=== PATIENT | male | born 1960 | race African-American/Black ===

== ENCOUNTER 2016-12-18 02:07 | Emergency (ER) | payer MEDICAID ==
[~2016-12-18 02:07] MED LIST: ACETAMINOPHEN PO; CATAPRES0.1 MG PO; CORDARONE200 M1 PO; DOXYCYCLINE PO; FOLIC ACID1 MG PO; K-DUR20 ME2 PO; LIBRIUM25 MG PO; LIPITOR20 MG PO; LOPRESSOR PO; LORTAB 7.51 TAB PO; METOPROLOL TAR25 MG PO; MULTI VITAMIN1 EACH PO; NO MEDICATIONS; NORVASC PO; NORVASC10 MG PO; THERAPEUTIC FOR1 TA1 PO; THIAMINE HCL100 M1 PO; THIAMINE HCL100 M2 PO; UNABLE TO OBTAIN; VASOTEC10 MG PO
== END 2016-12-18 06:24 | disposition home or self-care (01) ==
LOC: CED 02:07
DX: F10.129 Alcohol abuse with intoxication, unspecified (principal); E11.9 Type 2 diabetes mellitus without complications; I10 Essential (primary) hypertension; F17.210 Nicotine dependence, cigarettes, uncomplicated
CPT/HCPCS: 99283

== ENCOUNTER 2017-01-25 07:35 | Emergency (ER) | payer MEDICAID, OTHER ==
[2017-01-25 08:04] LABS: URINE SOURCE CLEAN CATCH
[2017-01-25 08:10] LABS: URINE APPEARANCE CLEAR; URINE BILIRUBIN NEG (NEG); URINE BLOOD TRACE (NEG); URINE COLOR YELLOW; URINE GLUCOSE NEG (NEG); URINE KETONE NEG (NEG); URINE LEUKOCYTE ESTERASE NEG (NEG); URINE NITRATE NEG (NEG); URINE PROTEIN 2+ (NEG); URINE SPECIFIC GRAVITY 1.009 (1.003-1.035); URINE UROBILINOGEN 0.2 MG/DL (NEG)
[2017-01-25 08:13] LABS: URBCS1 AUWI 0-2 /[HPF] (0-2); URINE BACTERIA AUWI NEG (NEGATIVE); URINE SQUAMOUS EPITHELIAL CELL NONE SEEN /[HPF]; UWBCS1 AUWI 0-2 (0-5)
[2017-01-25 08:17] LABS: CULTURE INDICATED? NO
[2017-01-25 08:22] LABS: AMPHETAMINE NEG (NEG); BARBITURATES NEG (NEG); BENZODIAZEPINES NEG (NEG); COCAINE NEG (NEG); MARIJUANA NEG (NEG); OPIATES NEG (NEG); TRICYCLIC ANTIDEPRESSANTS NEG (NEG); U METHADONE NEG (NEG)
[2017-01-25 08:30] LABS: ALBUMIN SERUM 3.5 g/dL (3.5-5.0); BILIRUBIN,TOTAL 0.4 mg/dL (0.2-2.0); CALCIUM SERUM 8.4 mg/dL (8.4-10.2); CREATININE SERUM 0.9 mg/dL (0.6-1.4); GLOM FILT RATE Estimated 110.3 mL/min (>60); POTASSIUM 3.5 mmol/L (3.5-5.1)
[2017-01-25 08:49] LABS: BASOPHIL% 1.1 % (0-2.5); EOSINOPHIL% 0.7 % (0.0-7.0); HEMATOCRIT 32.7 % (38.0-50.0); LYMPHOCYTE# 0.8 X10e3 (1.0-3.5); LYMPHOCYTE% 29.8 % (17.0-45.0); MEAN CELL VOLUME 81.4 FL (83-96); MEAN CORPUSCULAR HEMOGLOBIN 24.9 PG (28-34); MEAN CORPUSCULAR HGB CONC 30.6 g/dL (30-36); MEAN PLATELET VOLUME 7.7 FL (6.5-11.5); MONOCYTE# 0.4 X10e3 (0-1.0); NEUTROPHIL# 1.4 X10e3 (1.5-7.1); NEUTROPHIL% 52.4 % (40-75); RED BLOOD COUNT 4.01 X10e (3.90-5.60); RED CELL DISTRIBUTION WIDTH 18.4 % (11.0-15.5); WHITE BLOOD COUNT 2.6 X10e3 (4.0-10.5)
[2017-01-25 09:18] LABS: DIFF IND YES; PLATELET COUNT 93 X10e3 (140-420)
[2017-01-25 09:35] LABS: ANISOCYTOSIS SL; HYPOCHROMIA SL; PLATELET ESTIMATE DECREASED (NORMAL)
[2017-07-17] MEDS ORDERED: HYDRALAZINE HC100 MG PO (15:56)
[2017-07-17] MEDS ORDERED: LISINOPRIL20 MG PO (15:57)
[2017-07-17] MEDS ORDERED: ONE DAILY ENER1 EACH PO (16:00)
[2017-07-17] MEDS ORDERED: ANTI-DIARRHEAL2 M1 PO (16:01)
[2017-07-17] MEDS ORDERED: NICOTINE TRANSD14 MG TOP (16:02)
[2017-07-17] MEDS ORDERED: LIBRIUM PO (16:05)
[2017-07-17] MEDS ORDERED: ASPIRIN EC81 M1 PO (16:06)
[2017-07-17] MEDS ORDERED: ALDACTONE25 MG PO (16:16)
== END 2017-01-25 17:00 | disposition home or self-care (01) ==
LOC: CED 07:35
PROVIDERS: Nurse Practitioner
DX: R74.8 Abnormal levels of other serum enzymes (principal); F10.129 Alcohol abuse with intoxication, unspecified; D64.9 Anemia, unspecified; D69.6 Thrombocytopenia, unspecified; I10 Essential (primary) hypertension; F17.210 Nicotine dependence, cigarettes, uncomplicated
CPT/HCPCS: 36415; 80053; 80307; 81003; 83690; 85025; 99283; G0480; J2060; J2405; J3490

== ENCOUNTER 2017-01-25 19:18 | Inpatient (IN) | payer MEDICAID, OTHER ==
--- NOTE | ~2017-01-25 | EKG ---
PATIENT: IZA OLIVERA UNIT #: [id number] Ventricular Rate: 170 BPM Atrial Rate: 150 BPM QRS Duration: 92 ms Q-T Interval: 298 ms QTC Calculation(Bezet): 501 ms Calculated R [place]: 59 degrees Calculated T [place]: 0 degrees Diagnosis Line: Atrial fibrillation with rapid ventricular Diagnosis Line: response with premature ventricular or aberrantly Diagnosis Line: conducted complexes Diagnosis Line: Left ventricular hypertrophy Diagnosis Line: ST and T wave abnormality, consider lateral ischemia Diagnosis Line: Abnormal ECG Diagnosis Line: When compared with ECG of 12-DEC-2016 15:04, Diagnosis Line: Significant changes have occurred Diagnosis Line: Confirmed by DENNIS JOSEPH MD ([id number]) on 01/25/2017 Diagnosis Line: 11:05:16 PM INTERPRETING MD: OPAL MUJICA
--- NOTE | ~2017-01-25 | EKG ---
PATIENT: IZA OLIVERA UNIT #: [id number] Ventricular Rate: 83 BPM Atrial Rate: 83 BPM P-R Interval: 144 ms QRS Duration: 86 ms Q-T Interval: 356 ms QTC Calculation(Bezet): 418 ms P [place]: 40 degrees Calculated R [place]: 26 degrees Calculated T [place]: 62 degrees Diagnosis Line: Normal sinus rhythm Diagnosis Line: Left atrial enlargement Diagnosis Line: Moderate voltage criteria for LVH, may be normal Diagnosis Line: variant Diagnosis Line: Borderline ECG Diagnosis Line: When compared with ECG of 28-JAN-2017 06:15, Diagnosis Line: (unconfirmed) Diagnosis Line: Normal sinus rhythm has replaced Atrial flutter Diagnosis Line: Vent. rate has decreased BY 62 BPM Diagnosis Line: Non-specific change in ST segment in Inferior Diagnosis Line: leads Diagnosis Line: ST elevation now present in Anterolateral leads Diagnosis Line: Nonspecific T wave abnormality, improved in Diagnosis Line: Anterolateral leads Diagnosis Line: Confirmed by DENNIS JOSEPH MD ([id number]) on 01/29/2017 Diagnosis Line: 4:46:23 PM INTERPRETING MD: OPAL MUJICA
--- NOTE | ~2017-01-25 | MR18 ---
[facility] Service of [facility] & [facility] RADIOLOGY TEXT RESULTS PATIENT: IZA OLIVERA LOCATION: C3A 310-01 : 60 UNIT #: [id number] AGE: [address]: Reji Armendariz MD SEX: M ORDER DR: [id number] [place] [id number] [facility]. [place], [place] [address] [id number] I MR#: [id number] #: [id number] NAME: IZA OLIVERA : 1960 SEX: M STUDY DATE/TIME: 02/01/2017 18:55 UNIT: C3A PCU ROOM: 310 STUDY DESCRIPTION: MR Brain Wo Contrast Attending Physician: Reji Armendariz M.D. Ordering Physician: Reji Armendariz M.D. MRI CENTER REPORT This report is preliminary unless electronic signature is present. EXAM Brain MRI without HISTORY Mental status changes. Patient had a seizure and hit his head yesterday after going home from the emergency room. Uncontrolled hypertension and heart rate. TECHNIQUE MRI of the brain was performed without contrast is seen. 1.5-T imaging technique. COMPARISON STUDIES Comparison studies 11/08/2013. FINDINGS One punctate focus of possibly restricted diffusion in the left frontal subcortical white matter, a few millimeters in dimension. It is too small to characterize well on the ADC map. Otherwise, no recent ischemic insult is suspected. There is generalized atrophy greater than expected for age group. This includes disproportionate volume loss in the posterior fossa and this is most commonly seen secondary to long-term alcohol or anti-seizure medication usage. There is no extra-axial fluid collection. There is a small focus of susceptibility in the left frontal subcortical white matter, probably due to remote hemorrhage and in light of history of uncontrolled hypertension. Similar lesion seen in the left thalamus, right thalamus and right posterolateral temporal lobe. There is a larger area of susceptibility at the right side splenium of the corpus callosum, also consistent with an old hemorrhagic insult. None of these is associated with mass effect and there is nothing to suggest a recent hemorrhage. There is extensive white matter disease which is nonspecific but probably due to small vessel disease. There is cortical signal STS. [facility] A Service of [facility] & [facility] RADIOLOGY TEXT RESULTS PATIENT: IZA OLIVERA LOCATION: C3A 310-01 : 60 UNIT #: [id number] AGE: [address]: Reji Armendariz MD SEX: M ORDER DR: abnormality at the posteromedial right frontal lobe which is new from 2013. It is not associated with mass effect and probably associated with volume loss. I suspect it is a small area of malacia from some interval now chronic insult. White matter disease is progressed from prior. There is also lacunar disease in the bilateral basal ganglia and thalami and generalized prominence of perivascular spaces. Signal abnormality in the harrison, patchy, nonspecific, probably due to small vessel disease, as well as chronic insults in the bilateral cerebellar hemispheres, largest on the right side inferiorly. The major intracranial flow voids are maintained. Fluid or inflammatory change left-sided mastoid air cells. Partial opacification of the ethmoid air cells. Incidental note made of a small Tornwaldt recess cyst. IMPRESSION 1. There is 1 punctate area of possibly restricted diffusion at the subcortical white matter of the posteromedial left frontal lobe. In this patient, if real, it is probably a tiny recent small vessel insult. 2. There is extensive preexisting probable sequelae of small vessel disease progressed from the study of 2013. There are also multiple areas of prior parenchymal hemorrhage, probably due to the patient's uncontrolled hypertension. No recent intracranial hemorrhage is suspected. 3. There is generalized atrophy greater than expected for age group with disproportionate volume loss in the posterior fossa. Findings most suggestive of long-term alcohol or anti-seizure medication usage and please correlate further clinically. Dictated by... Heaven Talbot M.D. THIS IS AN ELECTRONICALLY VERIFIED REPORT Heaven Talbot M.D. at 02/01/2017 11:09 PM TELMA/yony TD: 02/01/2017 22:04 JOB #: [id number] MRI CENTER REPORT Page 1 of 1 COPY
--- NOTE | ~2017-01-25 | EKG ---
PATIENT: IZA OLIVERA UNIT #: [id number] Ventricular Rate: 150 BPM Atrial Rate: 136 BPM QRS Duration: 86 ms Q-T Interval: 304 ms QTC Calculation(Bezet): 480 ms Calculated R [place]: 54 degrees Calculated T [place]: 9 degrees Diagnosis Line: Atrial fibrillation with rapid ventricular Diagnosis Line: response Diagnosis Line: Left ventricular hypertrophy Diagnosis Line: Nonspecific T wave abnormality Diagnosis Line: Abnormal ECG Diagnosis Line: When compared with ECG of 25-JAN-2017 20:06, Diagnosis Line: ST no longer depressed in Lateral leads Diagnosis Line: Confirmed by DENNIS JOSEPH MD ([id number]) on 01/27/2017 Diagnosis Line: 6:59:59 PM INTERPRETING MD: OPAL MUJICA
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
--- NOTE | ~2017-01-25 | OR ---
Unit #: [id number] #: [id number] Patient: IZA OLIVERA [id number] [address] [address] [id number] I MR#: [id number] NAME: IZA OLIVERA ROOM: [facility] Date of Procedure: 01/29/2017 Admission Date: 01/25/2017 Surgeon: Gavin Cortés M.D. : 1960 Attending Physician: Reji Armendariz M.D. OPERATIVE REPORT PROCEDURE PERFORMED Direct current shock cardioversion. DESCRIPTION OF PROCEDURE The patient was given 4 mg of intravenous Versed and 100 mcg of intravenous fentanyl over 10 minute duration and after adequate sedation was induced, using 250 joules per second of biphasic current, DC shock cardioversion was performed. Rhythm converted to normal sinus, no tachyarrhythmia was induced. Blood pressure and oxygen saturation remained normal. IMPRESSION Successful direct current shock cardioversion, atrial flutter-fibrillation converted to normal sinus following 250 joules per second of biphasic current. Dictated by... Lucian Tripp/kelly TD: 01/30/2017 00:12 JOB #: [id number] OPERATIVE REPORT Page 1 of 1 X Gavin Cortés MD X PROCEDURE OPERATIVE NOTE
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
--- NOTE | ~2017-01-25 | FU ---
[facility] Nutrition Therapy DATE: 01/31/17 Patient: IZA OLIVERA Physician: CHAYITO Address: [address] [place] [address] Room/Bed: [address], Zip: [place] [address] Admit Date: 01/25/17 Date of : 60 Height: 5 8 Weight: 213 97 NUTRITION MONITORING/FOLLOW-UP: Reason: FOLLOW UP Anthropometrics: Ht: 68" Adm wt: 96 kg BMI: 37 Wt 01/31: 97 kg Labs: Gluc 123 BUN 24 Alb 2.7 AST 188 ALT 110 Meds: KCl, MgSO4, lopressor, MVI with minerals, furosemide, mag-ox, protonix, zofran, thiamine I&O's: 3450/3645, last BM unknown Skin: No changes noted Edema: none noted Diet: Heart healthy Assessment: Chart reviewed, events noted. Pt has been ordered a heart healthy diet with thin liquids per RECREATIONAL RESORT MANAGER recommendations. RECREATIONAL RESORT MANAGER notes that the pt may need feeding assistance. RN reports that the pt was receiving enteral nutrition up until this AM when he pulled out his DHT. RD spoke with the pt, who was sitting in the chair. Pt just finished his breakfast, and consumed 80% of it per RD observation. Pt reports having a good appetite and denies having any recent weight loss. Pt asked RD "What would a good diet be for someone coming off alchocol?". RD discussed the importance of a heart healthy, well-balanced diet, and provided basic diet education. Pt voiced understanding; however, he did seem somewhat confused. Pt is agreeable to Ensure once daily. RD will order. First nutrition diagnosis resolved, other remains active. Dx: Stage II obese RT PMH, lifestyle, diet AEB BMI 37- ACTIVE Intervention: 1. Continue heart helathy diet 2. Ensure once daily Monitoring, Evaluation and Goals: 1. Oral intake; tolerate >50-75% meals 2. Labs; WNL: ALT, AST, gluc 3. Weight; preserve lean body mass [facility] Nutrition Therapy DATE: 01/31/17 Patient: IZA OLIVERA Physician: CHAYITO Address: [address] [place] [address] Room/Bed: [address], Zip: [place] [address] Admit Date: 04/05/17 Date of : 60 Height: 5 8 Weight: 213 97 Recommendations: 1. Continue heart healthy diet as tolerated. 2. Ensure Enlive strawberry once daily for supplemental nutrition. 3. Continue MVI with minerals + thiamine supplementation. Status: Pt is at mild-moderate nutritional risk. Respectfully, SPENCER AMBROCIO RD, LD Food and Nutritional Services [facility] [place] [facility] cc: client file
--- NOTE | ~2017-01-25 | DS ---
Unit #: [id number] #: [id number] Patient: IZA OLIVERA [id number] [address] [place], [place] [address] [id number] MR#: [id number] NAME: IZA OLIVERA ROOM: 310 Age: 56 Sex: M Admission Date: 01/25/2017 : 1960 Discharge Date: 02/02/2017 Attending Physician: Reji Armendariz M.D. Primary Care Physician: No Primary Care Physician DISCHARGE SUMMARY REASON FOR ADMISSION Alcohol withdrawal seizure, A-fib with RVR. HISTORY OF PRESENT ILLNESS/HOSPITAL COURSE The patient is a 56-year-old male well known to [facility] secondary to prior history of alcohol abuse, atrial fibrillation, hypertension. Please see H and P for complete details. In regards to his aberrant behavior as well as alcohol withdrawal, he was place din the ICU. He was noted to have seizure-like activity which did resolve through hospital course. He was placed on appropriate CIWA protocol. He did require, at one point in time, Precedex drip as well as sedation. Eventually, on 02/01/2017, he reverted back to be alert and oriented x3. He was otherwise comfortable. CIWA protocol was subsequently discontinued. He was initially in the ICU, subsequently transferred to telemetry floor. It was noted on initial chest x-ray that he does have right upper lobe infiltrate, likely consistent with aspiration. Pulmonary services were consulted. He was placed on IV antibiotics while he was here. He does have a chronic longstanding history of thrombocytopenia, likely secondary to longstanding history of alcohol abuse. Cardiology services, Dr. Fuller and associates, followed the patient throughout hospital course. Rate control was achieved through appropriate medications while here and they continued to follow the patient through hospital course. They had made recommendation for patient to be discharged on Pradaxa as well as rate control at time of discharge. Appropriate prescriptions will be given to the patient. The patient was noted to have elevated CK level likely consistent with acute rhabdomyolysis secondary to seizure activity. It should be noted patient did have atrial fibrillation/flutter and did undergo DC cardioversion and was converted into sinus rhythm but again recommendation has been made for Pradaxa at time of discharge. Patient did have altered mental status and, therefore, patient did undergo MRI brain without contrast which did not show any acute process but did show atrophy changes consistent with longstanding alcohol abuse. At this point in time, patient is clinically stable for discharge. 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 He tells me that he will be following up with a case/secondary social studies teacher at the [facility] for alcohol rehab. I encouraged him to do so. His chance of readmission is significantly elevated and/or high secondary to ongoing alcohol abuse. 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 FINAL DISCHARGE DIAGNOSES 1. Alcohol withdrawal-induced seizures. 2. Longstanding history of alcohol abuse. 3. 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 4. Atrial fibrillation with rapid ventricular response, status post cardioversion. 5. Hypertension. 6. Thrombocytopenia secondary to alcohol abuse. 7. Alcohol-induced liver disease with chronically elevated liver function tests. 8. Longstanding history of noncompliance. FINAL DISCHARGE MEDICATIONS 1. Mag ox 400 mg p.o. b.i.d. 2. Norvasc 10 mg p.o. daily. 3. Lopressor 100 mg p.o. b.i.d. 4. Lasix 40 mg p.o. b.i.d. 5. Pradaxa 150 mg p.o. b.i.d. DISCHARGE CONDITION Stable. DISCHARGE DISPOSITION Home with appropriate outpatient followup as detailed above. Dictated by... Lucian Crawford/suzanna TD: 02/03/2017 10:36 JOB #: [id number] DISCHARGE SUMMARY Page 1 of 1 X Reji Armendariz MD X DISCHARGE SUMMARY
--- NOTE | ~2017-01-25 | EKG ---
PATIENT: IZA OLIVERA UNIT #: [id number] Ventricular Rate: 145 BPM Atrial Rate: 145 BPM P-R Interval: 120 ms QRS Duration: 96 ms Q-T Interval: 324 ms QTC Calculation(Bezet): 503 ms Calculated R Orlando: 57 degrees Calculated T Orlando: 98 degrees Diagnosis Line: Sinus tachycardia with Atrial flutter Diagnosis Line: Left ventricular hypertrophy with repolarization Diagnosis Line: abnormality Diagnosis Line: Abnormal ECG Diagnosis Line: When compared with ECG of 26-JAN-2017 06:57, Diagnosis Line: Atrial flutter has replaced Atrial fibrillation Diagnosis Line: Confirmed by DENNIS JOSEPH MD ([id number]) on 01/29/2017 Diagnosis Line: 4:31:55 PM INTERPRETING MD: OPAL MUJICA
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
--- NOTE | ~2017-01-25 | DS ---
Unit #: [id number] #: [id number] Patient: IZA OLIVERA [id number] [place] [address] [id number] I MR#: [id number] NAME: IZA OLIVERA ROOM: 310 Age: 56 Sex: M Admission Date: 01/25/2017 : 1960 Discharge Date: 02/02/2017 Attending Physician: Reji Armendariz M.D. Primary Care Physician: Carine Primary Care Physician DISCHARGE SUMMARY ADDENDUM ADDITIONAL DISCHARGE MEDICATIONS 1. Multivitamin daily. 2. Thiamine 100 mg p.o. daily. 3. Isordil 40 mg p.o. b.i.d. 4. Klor-Con 20 mEq p.o. b.i.d. 5. Hydralazine 100 mg p.o. q.8. Dictated by... Lucian Crawford/suzanna TD: 02/03/2017 10:46 JOB #: [id number] DISCHARGE SUMMARY Page 1 of 1 X Reji Armendariz MD DISCHARGE SUMMARY
--- NOTE | ~2017-01-25 | CR72 ---
[facility] A Service of [facility] & [facility] RADIOLOGY TEXT RESULTS PATIENT: IZA OLIVERA LOCATION: [address] : [birth year] UNIT #: [id number] AGE: [address]: Carmen Nicole MD SEX: M ORDER DR: [id number] [place] [id number] [facility]. [place], [place] [address] [id number] I MR#: [id number] Acc #: [id number] NAME: IZA OLIVERA : 1960 SEX: M STUDY DATE/TIME: 01/27/2017 09:22 UNIT: [facility] ROOM: [facility] STUDY DESCRIPTION: CR Chest Single View Portable Attending Physician: Carmen Nicole M.D. Ordering Physician: Carmen Nicole M.D. Primary Care Physician: No Primary Care Physician MEDICAL IMAGING REPORT This report is preliminary unless electronic signature is present EXAM Chest portable, 01/27/2017, 0922 hours. CLINICAL HISTORY 56-year-old man with cough and shortness of air today. History of alcohol abuse, possible fluid overload. COMPARISON 11/24/2016 FINDINGS Upright portable chest demonstrates normal heart size with a tortuous aorta. Lung volumes are slightly low, but similar to prior study. There is patchy new right upper lobe airspace density most likely representing pneumonia. Left lung is clear and there is no left effusion. There are subacute to old left fourth through eighth rib fractures similar to prior film. There is no pneumothorax. IMPRESSION 1. There is new or increasing patchy density in the right upper lobe likely representing pneumonia. No definite effusion. Stable elevation of the right hemidiaphragm. 2. Old left subacute to old to chronic rib fractures noted. Dictated by... Mary Lees M.D. THIS IS AN ELECTRONICALLY VERIFIED REPORT Mary Lees M.D. at 01/27/2017 2:30 PM CARLY/pancho TD: 01/27/2017 11:02 JOB #: [id number] [facility] A Service of [facility] & [facility] RADIOLOGY TEXT RESULTS PATIENT: IZA OLIVERA LOCATION: [facility] CICCU3-16 : [birth year] UNIT #: [id number] AGE: [address]: Carmen Nicole MD SEX: M ORDER DR: MEDICAL IMAGING REPORT Page 1 of 1 COPY
--- NOTE | ~2017-01-25 | CR7 ---
[facility] A Service of [facility] & [facility] RADIOLOGY TEXT RESULTS PATIENT: IZA OLIVERA LOCATION: [address]16 : [birth year] UNIT #: [id number] AGE: [address]: Carmen Nicole MD SEX: M ORDER DR: [id number] [facility] [address] [facility]. [place], [place] [address] [id number] I MR#: [id number] Acc #: [id number] NAME: IZA OLIVERA : 1960 SEX: M STUDY DATE/TIME: 01/28/2017 16:40 UNIT: [facility] ROOM: [facility] STUDY DESCRIPTION: CR Abdomen Single AP View Attending Physician: Carmen Nicole M.D. Ordering Physician: Carmen Nicole M.D. Primary Care Physician: No Primary Care Physician MEDICAL IMAGING REPORT This report is preliminary unless electronic signature is present EXAM Portable abdomen. DATE OF EXAM 01/28/2017 HISTORY Dobbhoff tube placement today. FINDINGS Portable radiograph of the abdomen for Dobbhoff tube placement demonstrates the feeding tube tip is in the left upper quadrant at the level of the proximal gastric body 12 cm beyond the EG junction. Borderline to mild dilatation of gas-filled small bowel in the left abdomen could be due to mild localized ileus. The exam does not include the majority of the pelvis. Dictated by... Too Cisneros M.D. THIS IS AN ELECTRONICALLY VERIFIED REPORT Too Cisneros M.D. at 01/28/2017 11:24 PM KEMAR/fidelina TD: 01/28/2017 20:14 JOB #: [id number] MEDICAL IMAGING REPORT Page 1 of 1 COPY
--- NOTE | ~2017-01-25 | CR72 ---
[facility] A Service of [facility] & [facility] RADIOLOGY TEXT RESULTS PATIENT: IZA OLIVERA LOCATION: [address]16 : [birth year] UNIT #: [id number] AGE: [address]: Reji Armendariz MD SEX: M ORDER DR: [id number] [facility] [address] [facility] [address] [place], [place] [address] [id number] I MR#: [id number] Acc #: [id number] NAME: IZA OLIVERA : 1960 SEX: M STUDY DATE/TIME: 01/28/2017 4:33 UNIT: [facility] ROOM: [facility] STUDY DESCRIPTION: CR Chest Single View Portable Attending Physician: Carmen Nicole M.D. Ordering Physician: Manny Bautista M.D. Primary Care Physician: No Primary Care Physician MEDICAL IMAGING REPORT This report is preliminary unless electronic signature is present EXAM Single view of the chest dated 01/28/2017 at 0433 hours. COMPARISON Single view chest dated 01/27/2017 at 0992 hours. HISTORY Shortness of air, cough for 2 days since 01/25/2017. History of seizures, hypertension and brain bleed. FINDINGS Single view of the chest was obtained. No significant interval changes seen in the cardiopulmonary status. There are some scattered alveolar and interstitial opacities in the lungs, particularly in the right upper lobe and, to a lesser degree, in the right lower lobe. There are multiple left-sided rib fractures from 4th to 8th ribs. Heart is borderline in size. Degenerative changes are noted in this thoracic spine. Dictated by... Sirena Enamorado M.D. THIS IS AN ELECTRONICALLY VERIFIED REPORT Sirena Enamorado M.D. at 01/30/2017 1:46 PM CPR/pc TD: 01/28/2017 12:27 JOB #: [id number] MEDICAL IMAGING REPORT Page 1 of 1 COPY
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
--- NOTE | ~2017-01-25 | CT71 ---
[facility] A Service of [facility] RADIOLOGY TEXT RESULTS PATIENT: IZA OLIVERA LOCATION: [facility] 315-01 : 60 UNIT #: [id number] AGE: [address]: Carmen Nicole MD SEX: M ORDER DR: [id number] [place] [id number] [facility]. [place], [place] [address] [id number] I MR#: [id number] Acc #: [id number] NAME: IZA OLIVERA : 1960 SEX: M STUDY DATE/TIME: 01/25/2017 21:30 UNIT: [facility] ROOM: 41253 STUDY DESCRIPTION: CT Head Wo Contrast Attending Physician: Sofi Robin M.D. Ordering Physician: Brianna Sharpe Pa-C Primary Care Physician: Primary Care Physician No MEDICAL IMAGING REPORT This report is preliminary unless electronic signature is present EXAM CT brain without contrast HISTORY Seizure today. Lethargy. Confusion. FINDINGS This CT exam was performed with one or more of the following radiation dose reduction techniques: Automatic exposure control, adjustment of mA and/or kV according to patient size, and iterative reconstruction. CT brain without contrast demonstrates no intracranial hemorrhage, mass or edema. No midline shift or ventricular dilatation or extraaxial fluid collection. Mild generalized cerebral cortical atrophy and mild chronic ischemic changes in the deep white matter bilaterally, and small chronic cortical infarct in the posterior parasagittal right frontal lobe. Small chronic lacunar infarcts in the lentiform nuclei bilaterally. IMPRESSION 1. No acute intracranial findings. 2. Mild generalized cerebral cortical atrophy and mild chronic ischemic changes. 3. Small chronic lacunar infarcts in the lentiform nuclei bilaterally. Dictated by... Too Cisneros M.D. THIS IS AN ELECTRONICALLY VERIFIED REPORT Too Cisneros M.D. at 01/26/2017 2:30 PM DFL/psc TD: 01/26/2017 00:45 [facility] A Service of [facility] RADIOLOGY TEXT RESULTS PATIENT: IZA OLIVERA LOCATION: [facility] 315-01 : [birth year] UNIT #: [id number] AGE: [address]: Carmen Nicole MD SEX: M ORDER DR: SARAH #: [id number] MEDICAL IMAGING REPORT Page 1 of 1 COPY
--- NOTE | ~2017-01-25 | CR72 ---
[facility] A Service of [facility] & [facility] RADIOLOGY TEXT RESULTS PATIENT: IZA OLIVERA LOCATION: [address]16 : [birth year] UNIT #: [id number] AGE: [address]: Reji Armendariz MD SEX: M ORDER DR: [id number] [facility] [address] [place], [place] [address] [id number] I MR#: [id number] Acc #: [id number] NAME: IZA OLIVERA : 1960 SEX: M STUDY DATE/TIME: 01/31/2017 02:48 UNIT: [facility] ROOM: [facility] STUDY DESCRIPTION: CR Chest Single View Portable Attending Physician: Reji Armendariz M.D. Ordering Physician: Reji Armendariz M.D. Primary Care Physician: Primary Care Physician No MEDICAL IMAGING REPORT This report is preliminary unless electronic signature is present EXAM Portable chest 01/31/2017 at 02:48 INDICATION Alcohol withdrawal seizure. Atrial fibrillation. FINDINGS AP portable chest is compared with 01/28/2017. Heart remains enlarged. There is chronic elevation of the right hemidiaphragm. Again seen are multiple left-sided rib fractures. No pneumothorax. No new infiltrates. Dictated by... Caleb Arzate Jr., M.D. THIS IS AN ELECTRONICALLY VERIFIED REPORT Caleb Arzate Jr., M.D. at 01/31/2017 10:37 PM AMISH/hollie TD: 01/31/2017 06:43 JOB #: [id number] MEDICAL IMAGING REPORT Page 1 of 1 COPY
[2017-01-25 21:02] LABS: POC - CKMB 11.2 ng/mL (0.0-7.9); POC - TROPONIN <0.05 ng/mL (<=0.05)
[2017-01-25 21:31] LABS: BASOPHIL% 0.6 % (0-2.5); HEMATOCRIT 34.4 % (38.0-50.0); HEMOGLOBIN 10.6 gm/dL (13.0-16.0); LYMPHOCYTE# 0.3 X10e3 (1.0-3.5); LYMPHOCYTE% 5.6 % (17.0-45.0); MEAN CELL VOLUME 81.4 FL (83-96); MEAN CORPUSCULAR HEMOGLOBIN 25.1 PG (28-34); MEAN CORPUSCULAR HGB CONC 30.8 g/dL (30-36); MEAN PLATELET VOLUME 7.7 FL (6.5-11.5); MONOCYTE# 0.3 X10e3 (0-1.0); MONOCYTE% 6.4 % (3.0-12.0); NEUTROPHIL# 4.2 X10e3 (1.5-7.1); NEUTROPHIL% 87.4 % (40-75); PLATELET COUNT 95 X10e3 (140-420); RED BLOOD COUNT 4.22 X10e (3.90-5.60); RED CELL DISTRIBUTION WIDTH 18.7 % (11.0-15.5)
[2017-01-25 21:32] LABS: WHITE BLOOD COUNT 4.8 X10e3 (4.0-10.5)
[2017-01-25 21:33] LABS: DIFF IND NO
[2017-01-25 21:45] LABS: PARTIAL THROMBOPLASTIN TIME 26.8 SECONDS (23.5-31.3); PROTHROMBIN TIME (PATIENT) 10.9 SECONDS (9.6-11.5)
[2017-01-25 21:51] LABS: ALBUMIN SERUM 3.7 g/dL (3.5-5.0); BILIRUBIN,TOTAL 0.6 mg/dL (0.2-2.0); CALCIUM SERUM 8.4 mg/dL (8.4-10.2); CREATININE SERUM 0.9 mg/dL (0.6-1.4); GLOM FILT RATE Estimated 110.3 mL/min (>60); POTASSIUM 3.6 mmol/L (3.5-5.1); PROTEIN TOTAL SERUM 7.6 g/dL (6.0-8.3)
[2017-01-25 22:33] LABS: URINE SOURCE CATH
[2017-01-25 22:42] LABS: URINE APPEARANCE CLEAR; URINE BILIRUBIN NEG (NEG); URINE BLOOD 1+ (NEG); URINE COLOR YELLOW; URINE GLUCOSE NEG (NEG); URINE KETONE NEG (NEG); URINE LEUKOCYTE ESTERASE NEG (NEG); URINE NITRATE NEG (NEG); URINE PH 6.5 (5-8); URINE PROTEIN TRACE (NEG); URINE SPECIFIC GRAVITY 1.008 (1.003-1.035); URINE UROBILINOGEN 0.2 MG/DL (NEG)
[2017-01-25 22:45] LABS: URBCS1 AUWI 0-2 /[HPF] (0-2); URINE BACTERIA AUWI NEG (NEGATIVE); URINE SQUAMOUS EPITHELIAL CELL NONE SEEN /[HPF]; UWBCS1 AUWI 0-2 (0-5)
[2017-01-25 22:47] LABS: CULTURE INDICATED? NO
[2017-01-25 22:52] LABS: AMPHETAMINE NEG (NEG); BARBITURATES NEG (NEG); BENZODIAZEPINES NEG (NEG); COCAINE NEG (NEG); MARIJUANA NEG (NEG); OPIATES NEG (NEG); TRICYCLIC ANTIDEPRESSANTS NEG (NEG); U METHADONE NEG (NEG)
[2017-01-26 10:00] LABS: ALBUMIN SERUM 3.6 g/dL (3.5-5.0); BILIRUBIN,TOTAL 1.4 mg/dL (0.2-2.0); BUN/CREATININE RATIO 12.22; CALCIUM SERUM 8.6 mg/dL (8.4-10.2); CREATININE SERUM 0.9 mg/dL (0.6-1.4); GLOM FILT RATE Estimated 110.3 mL/min (>60); MAGNESIUM 1.6 mg/dL (1.6-3.0); POTASSIUM 3.4 mmol/L (3.5-5.1); PROTEIN TOTAL SERUM 7.2 g/dL (6.0-8.3)
[2017-01-26 10:18] LABS: BASOPHIL% 0.6 % (0-2.5); HEMATOCRIT 33.5 % (38.0-50.0); HEMOGLOBIN 10.5 gm/dL (13.0-16.0); LYMPHOCYTE# 0.6 X10e3 (1.0-3.5); LYMPHOCYTE% 10.2 % (17.0-45.0); MEAN CELL VOLUME 80.1 FL (83-96); MEAN CORPUSCULAR HEMOGLOBIN 25.2 PG (28-34); MEAN CORPUSCULAR HGB CONC 31.5 g/dL (30-36); MEAN PLATELET VOLUME 8.2 FL (6.5-11.5); MONOCYTE# 0.6 X10e3 (0-1.0); MONOCYTE% 11.5 % (3.0-12.0); NEUTROPHIL# 4.3 X10e3 (1.5-7.1); NEUTROPHIL% 77.7 % (40-75); PLATELET COUNT 98 X10e3 (140-420); RED BLOOD COUNT 4.18 X10e (3.90-5.60); RED CELL DISTRIBUTION WIDTH 18.3 % (11.0-15.5); WHITE BLOOD COUNT 5.5 X10e3 (4.0-10.5)
[2017-01-26 10:20] LABS: DIFF IND NO
[2017-01-26 10:25] LABS: %MB 2.4 % (0.0-4.0); MB 29.9 ng/ml
[2017-01-26 16:04] LABS: MAGNESIUM 1.6 mg/dL (1.6-3.0)
[2017-01-27 05:30] LABS: HEMATOCRIT 37.6 % (38.0-50.0); HEMOGLOBIN 11.7 gm/dL (13.0-16.0); MEAN CELL VOLUME 80.9 FL (83-96); MEAN CORPUSCULAR HEMOGLOBIN 25.2 PG (28-34); MEAN CORPUSCULAR HGB CONC 31.1 g/dL (30-36); MEAN PLATELET VOLUME 8.4 FL (6.5-11.5); RED BLOOD COUNT 4.64 X10e (3.90-5.60); WHITE BLOOD COUNT 7.3 X10e3 (4.0-10.5)
[2017-01-27 05:53] LABS: CALCIUM SERUM 8.7 mg/dL (8.4-10.2); GLOM FILT RATE Estimated 97.1 mL/min (>60); POTASSIUM 3.2 mmol/L (3.5-5.1)
[2017-01-28 05:31] LABS: ARTERIAL BLOOD GAS CARBOXY HB 1.4 %sat (0.0-9.0); ARTERIAL BLOOD GAS MET HB 1.2 %sat (0.0-2.0); ARTERIAL BLOOD GAS PCO2 29.1 mmHg (35.0-45.0); ARTERIAL BLOOD GAS pH 7.487 (7.350-7.450)
[2017-01-28 05:35] LABS: ARTERIAL BLOOD GAS ALLEN TEST NORMAL; ARTERIAL BLOOD GAS ART SITE LEFT RADIAL; ARTERIAL DRAW? YES
[2017-01-28 05:43] LABS: BASOPHIL% 0.3 % (0-2.5); HEMATOCRIT 37.2 % (38.0-50.0); HEMOGLOBIN 11.4 gm/dL (13.0-16.0); LYMPHOCYTE# 0.5 X10e3 (1.0-3.5); LYMPHOCYTE% 5.9 % (17.0-45.0); MEAN CELL VOLUME 81.9 FL (83-96); MEAN CORPUSCULAR HEMOGLOBIN 25.1 PG (28-34); MEAN CORPUSCULAR HGB CONC 30.7 g/dL (30-36); MEAN PLATELET VOLUME 8.8 FL (6.5-11.5); MONOCYTE# 0.9 X10e3 (0-1.0); MONOCYTE% 10.2 % (3.0-12.0); NEUTROPHIL# 7.2 X10e3 (1.5-7.1); NEUTROPHIL% 83.6 % (40-75); PLATELET COUNT 131 X10e3 (140-420); RED BLOOD COUNT 4.55 X10e (3.90-5.60); WHITE BLOOD COUNT 8.6 X10e3 (4.0-10.5)
[2017-01-28 05:44] LABS: DIFF IND NO
[2017-01-28 06:44] LABS: ALBUMIN SERUM 2.9 g/dL (3.5-5.0); BILIRUBIN,TOTAL 1.5 mg/dL (0.2-2.0); CALCIUM SERUM 8.6 mg/dL (8.4-10.2); GLOM FILT RATE Estimated 97.1 mL/min (>60); MAGNESIUM 1.7 mg/dL (1.6-3.0); POTASSIUM 3.7 mmol/L (3.5-5.1); PROTEIN TOTAL SERUM 6.4 g/dL (6.0-8.3)
[2017-01-29 05:59] LABS: BASOPHIL% 0.5 % (0-2.5); DIFF IND NO; EOSINOPHIL% 0.5 % (0.0-7.0); HEMATOCRIT 35.5 % (38.0-50.0); HEMOGLOBIN 10.9 gm/dL (13.0-16.0); LYMPHOCYTE# 0.4 X10e3 (1.0-3.5); LYMPHOCYTE% 6.8 % (17.0-45.0); MEAN CELL VOLUME 81.3 FL (83-96); MEAN CORPUSCULAR HGB CONC 30.8 g/dL (30-36); MEAN PLATELET VOLUME 7.7 FL (6.5-11.5); MONOCYTE# 0.7 X10e3 (0-1.0); MONOCYTE% 11.2 % (3.0-12.0); NEUTROPHIL# 4.7 X10e3 (1.5-7.1); PLATELET COUNT 147 X10e3 (140-420); RED BLOOD COUNT 4.36 X10e (3.90-5.60); RED CELL DISTRIBUTION WIDTH 18.7 % (11.0-15.5); WHITE BLOOD COUNT 5.8 X10e3 (4.0-10.5)
[2017-01-29 08:49] LABS: BUN/CREATININE RATIO 15.55; CALCIUM SERUM 8.7 mg/dL (8.4-10.2); CREATININE SERUM 0.9 mg/dL (0.6-1.4); GLOM FILT RATE Estimated 110.3 mL/min (>60); MAGNESIUM 1.7 mg/dL (1.6-3.0); POTASSIUM 3.6 mmol/L (3.5-5.1)
[2017-01-30 03:53] LABS: BASOPHIL% 0.3 % (0-2.5); EOSINOPHIL% 0.9 % (0.0-7.0); HEMATOCRIT 34.4 % (38.0-50.0); HEMOGLOBIN 10.5 gm/dL (13.0-16.0); LYMPHOCYTE# 0.4 X10e3 (1.0-3.5); LYMPHOCYTE% 10.3 % (17.0-45.0); MEAN CORPUSCULAR HEMOGLOBIN 25.1 PG (28-34); MEAN CORPUSCULAR HGB CONC 30.6 g/dL (30-36); MEAN PLATELET VOLUME 7.6 FL (6.5-11.5); MONOCYTE# 0.5 X10e3 (0-1.0); MONOCYTE% 12.9 % (3.0-12.0); NEUTROPHIL# 3.2 X10e3 (1.5-7.1); NEUTROPHIL% 75.6 % (40-75); PLATELET COUNT 172 X10e3 (140-420); RED BLOOD COUNT 4.19 X10e (3.90-5.60); RED CELL DISTRIBUTION WIDTH 18.4 % (11.0-15.5); WHITE BLOOD COUNT 4.3 X10e3 (4.0-10.5)
[2017-01-30 03:55] LABS: DIFF IND NO
[2017-01-30 04:21] LABS: CALCIUM SERUM 9.1 mg/dL (8.4-10.2); GLOM FILT RATE Estimated 97.1 mL/min (>60); MAGNESIUM 1.8 mg/dL (1.6-3.0); PHOSPHOROUS 3.9 mg/dL (2.5-4.6); POTASSIUM 3.7 mmol/L (3.5-5.1)
[2017-01-31 06:48] LABS: ALBUMIN SERUM 2.7 g/dL (3.5-5.0); BILIRUBIN, DIRECT 0.1 mg/dL (0.0-0.2); BILIRUBIN,INDIRECT 0.3 mg/dL (0.0-0.9); BILIRUBIN,TOTAL 0.4 mg/dL (0.2-2.0); BUN/CREATININE RATIO 21.81; CALCIUM SERUM 9.4 mg/dL (8.4-10.2); CREATININE SERUM 1.1 mg/dL (0.6-1.4); GLOM FILT RATE Estimated 86.5 mL/min (>60); POTASSIUM 4.1 mmol/L (3.5-5.1); PROTEIN TOTAL SERUM 6.8 g/dL (6.0-8.3)
[2017-01-31 09:27] LABS: CHOLESTEROL 189 mg/dL (0-200); HDL CHOLESTEROL 58 mg/dL (29-75); LDL CHOLESTEROL 113 mg/dL (-130); LDL/HDL RATIO 2 RATIO (0-4); TRIGLYCERIDES 91 mg/dL (10-160)
[2017-02-01 06:29] LABS: CALCIUM SERUM 9.7 mg/dL (8.4-10.2); GLOM FILT RATE Estimated 97.1 mL/min (>60); POTASSIUM 4.1 mmol/L (3.5-5.1)
[2017-02-02 05:37] LABS: HEMATOCRIT 32.4 % (38.0-50.0); HEMOGLOBIN 10.2 gm/dL (13.0-16.0); MEAN CELL VOLUME 80.3 FL (83-96); MEAN CORPUSCULAR HEMOGLOBIN 25.2 PG (28-34); MEAN CORPUSCULAR HGB CONC 31.4 g/dL (30-36); MEAN PLATELET VOLUME 8.4 FL (6.5-11.5); RED BLOOD COUNT 4.04 X10e (3.90-5.60); RED CELL DISTRIBUTION WIDTH 18.3 % (11.0-15.5); WHITE BLOOD COUNT 4.2 X10e3 (4.0-10.5)
[2017-02-02 06:34] LABS: BILIRUBIN,TOTAL 0.5 mg/dL (0.2-2.0); CALCIUM SERUM 9.6 mg/dL (8.4-10.2); GLOM FILT RATE Estimated 97.1 mL/min (>60); POTASSIUM 4.1 mmol/L (3.5-5.1); PROTEIN TOTAL SERUM 6.6 g/dL (6.0-8.3)
[2017-02-02] MEDS ORDERED: KCL PO (12:49)
[2017-02-02] MEDS ORDERED: LASIX PO (12:49)
[2017-02-02] MEDS ORDERED: MAGNESIUM400 M1 PO (12:50)
[2017-02-02] MEDS ORDERED: LOPRESSOR PO (12:50)
[2017-02-02] MEDS ORDERED: ISORDIL PO (12:50)
[2017-02-02] MEDS ORDERED: PRADAXA150 MG PO (12:51)
[2017-02-02] MEDS ORDERED: HYDRALAZINE HC100 MG PO (12:54)
[2017-07-17] MEDS ORDERED: HYDRALAZINE HC100 MG PO (15:56)
[2017-07-17] MEDS ORDERED: LISINOPRIL20 MG PO (15:57)
[2017-07-17] MEDS ORDERED: ONE DAILY ENER1 EACH PO (16:00)
[2017-07-17] MEDS ORDERED: ANTI-DIARRHEAL2 M1 PO (16:01)
[2017-07-17] MEDS ORDERED: NICOTINE TRANSD14 MG TOP (16:02)
[2017-07-17] MEDS ORDERED: LIBRIUM PO (16:05)
[2017-07-17] MEDS ORDERED: ASPIRIN EC81 M1 PO (16:06)
[2017-07-17] MEDS ORDERED: ALDACTONE25 MG PO (16:16)
== END 2017-02-02 14:45 | disposition home or self-care (01) | DRG 896 ==
LOC: CED 19:18 → CEDOF 23:00 → C3A PCU 01-26 13:14 → CICCU3 01-26 17:53 → C3A PCU 02-01 16:17
PROVIDERS: Family Medicine; Internal Medicine; Internal Medicine Cardiovascular Disease; Physician Assistant Medical
PROC: B24BYZZ Ultrasonography of Heart with Aorta using Other Contrast (ICD-10-PCS; 2017-01-28)
PROC: 5A2204Z Restoration of Cardiac Rhythm, Single (ICD-10-PCS; principal; 2017-01-29)
DX: F10.239 Alcohol dependence with withdrawal, unspecified (principal); J69.0 Pneumonitis due to inhalation of food and vomit; F10.231 Alcohol dependence with withdrawal delirium; J96.01 Acute respiratory failure with hypoxia; G92 Toxic encephalopathy; K70.10 Alcoholic hepatitis without ascites; M62.82 Rhabdomyolysis; S22.42XA Multiple fractures of ribs, left side, initial encounter for closed fracture; D69.59 Other secondary thrombocytopenia; G40.509 Epileptic seizures related to external causes, not intractable, without status epilepticus; I48.92 Unspecified atrial flutter; I48.0 Paroxysmal atrial fibrillation; I10 Essential (primary) hypertension; Z91.14 Patient's other noncompliance with medication regimen; F17.210 Nicotine dependence, cigarettes, uncomplicated; K70.9 Alcoholic liver disease, unspecified; E87.6 Hypokalemia; E83.42 Hypomagnesemia; D64.9 Anemia, unspecified; G31.9 Degenerative disease of nervous system, unspecified; Y90.1 Blood alcohol level of 20-39 mg/100 ml
CPT/HCPCS: 36600; 70450; 70551; 71010; 74000; 80048; 80053; 80061; 80076; 80307; 81003; 82140; 82550; 82553; 82803; 83735; 83880; 84100; 84484; 85025; 85027; 85610; 85730; 87040; 87070; 87205; 92610; 93005; 93306; 96361; 96365; 96368; 96375; 96376; 97116; 97162; 97166; 97530; 97535; 99291; C9113; G0480; G8996-GN; G8997-GN; G8998-GN; J0360; J1160; J1650; J1940; J1956; J2060; J2250; J3010; J3370; J3411; J3475; J3480; J3490

== ENCOUNTER 2017-03-02 17:54 | Emergency (ER) | payer MEDICAID, OTHER ==
--- NOTE | ~2017-03-02 | CR58 ---
[facility] A Service of [facility] RADIOLOGY TEXT RESULTS PATIENT: IZA OLIVERA LOCATION: [facility] : 60 UNIT #: [id number] AGE: [address]: Cecilio Senior MD SEX: M ORDER DR: [id number] [place] [id number] [facility]. [place], [place] [address] [id number] E MR#: [id number] Acc #: [id number] NAME: IZA OLIVERA : 1960 SEX: M STUDY DATE/TIME: 03/02/2017 20:19 UNIT: [facility] ROOM: STUDY DESCRIPTION: CR Cervical Spine 2 or 3 Views Attending Physician: Rodríguez Rangel D.O. Ordering Physician: Rodríguez Rangel D.O. Primary Care Physician: Primary Care Physician No MEDICAL IMAGING REPORT This report is preliminary unless electronic signature is present EXAM Cervical spine, 03/02/2017 HISTORY Neck pain status post fall tonight. COMPARISON Cervical spine 02/01/2016 FINDINGS 8 views of the cervical spine demonstrate no acute fracture or subluxation. Vertebral body heights and alignment are normally maintained. Prevertebral soft tissues normal. Atlantoaxial relationship normal. Cervicothoracic junction unremarkable. Disc spaces are within expected limits. Facets are unremarkable. There are small anterior osteophytes at multiple levels. IMPRESSION Unremarkable cervical spine. Dictated by... Alfonso Rodas M.D. THIS IS AN ELECTRONICALLY VERIFIED REPORT Alfonso Rodas M.D. at 03/06/2017 7:49 AM ROWENA/chad TD: 03/03/2017 01:58 JOB #: [id number] MEDICAL IMAGING REPORT [facility] A Service of [facility] RADIOLOGY TEXT RESULTS PATIENT: IZA OLIVERA LOCATION: [facility] : 60 UNIT #: [id number] AGE: [address]: Cecilio Senior MD SEX: M ORDER DR: Page 1 of 1 COPY
--- NOTE | ~2017-03-02 | CR94 ---
[facility] A Service of [facility] RADIOLOGY TEXT RESULTS PATIENT: IZA OLIVERA LOCATION: [facility] : 60 UNIT #: [id number] AGE: [address]: Cecilio Senior MD SEX: M ORDER DR: [id number] [address] [place], [place] [address] [id number] MR#: [id number] Acc #: [id number] NAME: IZA OLIVERA : 1960 SEX: M STUDY DATE/TIME: 03/02/2017 20:23 UNIT: [facility] ROOM: STUDY DESCRIPTION: CR Elbow Min 3 Views Rt Attending Physician: Rodríguez Rangel D.O. Ordering Physician: Rodríguez Rangel D.O. Primary Care Physician: No Primary Care Physician MEDICAL IMAGING REPORT This report is preliminary unless electronic signature is present EXAM Right elbow. DATE OF EXAM 03/02/2017 HISTORY 56-year-old male with right elbow pain, status post fall today. COMPARISON None. FINDINGS 3 views of the right elbow demonstrate no acute fracture or dislocation. No joint effusion. There is mild ossification at the triceps tendon insertion. There is mild soft tissue swelling and a small amount of soft tissue gas along posterior aspect of the elbow. IMPRESSION 1. No evidence of acute fracture or dislocation. 2. Mild posterior soft tissue swelling with a small amount of soft tissue gas. Dictated by... Alfonso Rodas M.D. THIS IS AN ELECTRONICALLY VERIFIED REPORT Alfonso Rodas M.D. at 03/06/2017 7:49 AM ROWENA/fidelina TD: 03/03/2017 02:02 JOB #: [id number] [facility] A Service [facility] RADIOLOGY TEXT RESULTS PATIENT: IZA OLIVERA LOCATION: [facility] : 60 UNIT #: [id number] AGE: [address]: Cecilio Senior MD SEX: M ORDER DR: MEDICAL IMAGING REPORT Page 1 of 1 COPY
--- NOTE | ~2017-03-02 | CT71 ---
[facility] A Service of [facility] RADIOLOGY TEXT RESULTS PATIENT: IZA OLIVERA LOCATION: [facility] : 60 UNIT #: [id number] AGE: [address]: Cecilio Senior MD SEX: M ORDER DR: [id number] [facility] [address] [place], [place] [address] [id number] E MR#: [id number] #: [id number] NAME: IZA OLIVERA : 1960 SEX: M STUDY DATE/TIME: 03/02/2017 19:02 UNIT: MARIE ROOM: STUDY DESCRIPTION: CT Head Wo Contrast Attending Physician: Rodríguez Rangel D.O. Ordering Physician: Rodríguez Rangel D.O. Primary Care Physician: No Primary Care Physician MEDICAL IMAGING REPORT This report is preliminary unless electronic signature is present EXAM CT head without contrast 03/02/2017 HISTORY A 56-year-old male with altered mental status today. Found down. Slurred speech. COMPARISON STUDIES CT head 01/25/2017. Brain MRI 02/01/2017. TECHNIQUE This CT exam was performed with one or more of the following radiation dose reduction techniques: automatic exposure control, adjustment of mA and/or kV according to patient size, and iterative reconstruction. Routine unenhanced axial images performed through the brain. FINDINGS No hemorrhage, acute infarction, mass lesion, or abnormal extraaxial fluid collection. No midline shift or focal mass effect. Ventricular system is normal in size and configuration. Moderate generalized atrophy, advanced for age. Pyrr-tz-lbxwjcbk chronic small vessel disease. Remote lacunar infarcts in bilateral basal ganglia and right thalamus. No acute bony abnormality. Visualized paranasal sinuses and mastoid air cells are clear. IMPRESSION 1. No acute intracranial abnormality. 2. Moderate generalized atrophy, advanced for age. Ywsy-qb-ubfxkgpl chronic small vessel disease. 3. Remote lacunar infarction, bilateral basal ganglia and right thalamus. [facility] A Service [facility] RADIOLOGY TEXT RESULTS PATIENT: IZA OLIVERA LOCATION: [facility] : 60 UNIT #: [id number] AGE: [address]: Cecilio Senior MD SEX: M ORDER DR: Dictated by... Alfonso Rodas M.D. THIS IS AN ELECTRONICALLY VERIFIED REPORT Alfonso Rodas M.D. at 03/06/2017 7:47 AM ROWENA/tram TD: 03/03/2017 01:26 JOB #: [id number] MEDICAL IMAGING REPORT Page 1 of 1 COPY
[~2017-03-02 17:54] MED LIST changes: +HYDRALAZINE HC100 MG PO; +ISORDIL PO; +KCL PO; +LASIX PO; +MAGNESIUM400 M1 PO; +PRADAXA150 MG PO
[2017-03-02 19:50] LABS: BASOPHIL% 0.9 % (0-2.5); EOSINOPHIL# 0.1 X10e3 (0-0.7); EOSINOPHIL% 1.4 % (0.0-7.0); HEMATOCRIT 32.8 % (38.0-50.0); LYMPHOCYTE# 0.8 X10e3 (1.0-3.5); LYMPHOCYTE% 19.4 % (17.0-45.0); MEAN CELL VOLUME 83.5 FL (83-96); MEAN CORPUSCULAR HEMOGLOBIN 25.6 PG (28-34); MEAN CORPUSCULAR HGB CONC 30.6 g/dL (30-36); MEAN PLATELET VOLUME 7.6 FL (6.5-11.5); MONOCYTE# 0.5 X10e3 (0-1.0); MONOCYTE% 11.8 % (3.0-12.0); NEUTROPHIL# 2.6 X10e3 (1.5-7.1); NEUTROPHIL% 66.5 % (40-75); PLATELET COUNT 175 X10e3 (140-420); RED BLOOD COUNT 3.93 X10e (3.90-5.60); RED CELL DISTRIBUTION WIDTH 19.7 % (11.0-15.5); WHITE BLOOD COUNT 3.9 X10e3 (4.0-10.5)
[2017-03-02 19:52] LABS: DIFF IND NO
[2017-03-02 20:05] LABS: PARTIAL THROMBOPLASTIN TIME 29.4 SECONDS (23.5-31.3); PROTHROMBIN TIME (PATIENT) 10.2 SECONDS (9.6-11.5)
[2017-03-02 20:23] LABS: BLOOD UREA NITROGEN 12 mg/dL (9-23); BUN/CREATININE RATIO 13.33; CALCIUM SERUM 9.1 mg/dL (8.4-10.2); CARBON DIOXIDE 25 mmol/L (22-31); CHLORIDE 109 mmol/L (100-111); CREATININE SERUM 0.9 mg/dL (0.6-1.4); GLOM FILT RATE Estimated 110.3 mL/min (>60); GLUCOSE FASTING 95 mg/dL (70-110); POTASSIUM 4.3 mmol/L (3.5-5.1); SALICYLATE <4.0 mg/dL; SODIUM 143 mmol/L (135-145)
[2017-03-02 20:25] LABS: ACETAMINOPHEN <10 ug/mL
[2017-03-02 20:37] LABS: POC - CKMB 4.9 ng/mL (0.0-7.9); POC - TROPONIN <0.05 ng/mL (<=0.05)
[2017-07-17] MEDS ORDERED: HYDRALAZINE HC100 MG PO (15:56)
[2017-07-17] MEDS ORDERED: LISINOPRIL20 MG PO (15:57)
[2017-07-17] MEDS ORDERED: ONE DAILY ENER1 EACH PO (16:00)
[2017-07-17] MEDS ORDERED: ANTI-DIARRHEAL2 M1 PO (16:01)
[2017-07-17] MEDS ORDERED: NICOTINE TRANSD14 MG TOP (16:02)
[2017-07-17] MEDS ORDERED: LIBRIUM PO (16:05)
[2017-07-17] MEDS ORDERED: ASPIRIN EC81 M1 PO (16:06)
[2017-07-17] MEDS ORDERED: ALDACTONE25 MG PO (16:16)
== END 2017-03-03 06:07 | disposition home or self-care (01) ==
LOC: CED 17:54
PROVIDERS: Emergency Medicine
DX: F10.129 Alcohol abuse with intoxication, unspecified (principal); Z91.19 Patient's noncompliance with other medical treatment and regimen; I10 Essential (primary) hypertension; Z79.899 Other long term (current) drug therapy
CPT/HCPCS: 36415; 70450; 72040; 73080; 80048; 82553; 84484; 85025; 85610; 85730; 96374; 99284; G0480; J0360

== ENCOUNTER 2017-04-01 01:50 | Emergency (ER) | payer MEDICAID, OTHER ==
--- NOTE | ~2017-04-01 | EKG ---
PATIENT: IZA OLIVERA UNIT #: [id number] Ventricular Rate: 97 BPM Atrial Rate: 97 BPM P-R Interval: 150 ms QRS Duration: 82 ms Q-T Interval: 378 ms QTC Calculation(Bezet): 480 ms P [place]: 48 degrees Calculated R [place]: 16 degrees Calculated T [place]: 68 degrees Diagnosis Line: Normal sinus rhythm Diagnosis Line: Possible Left atrial enlargement Diagnosis Line: Prolonged QT Diagnosis Line: Abnormal ECG Diagnosis Line: When compared with ECG of 29-JAN-2017 10:17, Diagnosis Line: T wave inversion now evident in Anterior leads Diagnosis Line: QT has lengthened Diagnosis Line: Confirmed by DENNIS JOSEPH MD ([id number]) on 04/02/2017 Diagnosis Line: 4:35:46 PM INTERPRETING MD: OPAL MUJICA
[2017-07-17] MEDS ORDERED: HYDRALAZINE HC100 MG PO (15:56)
[2017-07-17] MEDS ORDERED: LISINOPRIL20 MG PO (15:57)
[2017-07-17] MEDS ORDERED: ONE DAILY ENER1 EACH PO (16:00)
[2017-07-17] MEDS ORDERED: ANTI-DIARRHEAL2 M1 PO (16:01)
[2017-07-17] MEDS ORDERED: NICOTINE TRANSD14 MG TOP (16:02)
[2017-07-17] MEDS ORDERED: LIBRIUM PO (16:05)
[2017-07-17] MEDS ORDERED: ASPIRIN EC81 M1 PO (16:06)
[2017-07-17] MEDS ORDERED: ALDACTONE25 MG PO (16:16)
== END 2017-04-01 07:15 | disposition home or self-care (01) ==
LOC: CED 01:50
DX: F10.129 Alcohol abuse with intoxication, unspecified (principal); I48.91 Unspecified atrial fibrillation
CPT/HCPCS: 93005; 99283

== ENCOUNTER 2017-04-04 01:01 | Emergency (ER) | payer MEDICAID, OTHER ==
[2017-07-17] MEDS ORDERED: HYDRALAZINE HC100 MG PO (15:56)
[2017-07-17] MEDS ORDERED: LISINOPRIL20 MG PO (15:57)
[2017-07-17] MEDS ORDERED: ONE DAILY ENER1 EACH PO (16:00)
[2017-07-17] MEDS ORDERED: ANTI-DIARRHEAL2 M1 PO (16:01)
[2017-07-17] MEDS ORDERED: NICOTINE TRANSD14 MG TOP (16:02)
[2017-07-17] MEDS ORDERED: LIBRIUM PO (16:05)
[2017-07-17] MEDS ORDERED: ASPIRIN EC81 M1 PO (16:06)
[2017-07-17] MEDS ORDERED: ALDACTONE25 MG PO (16:16)
== END 2017-04-04 07:00 | disposition home or self-care (01) ==
LOC: CED 01:01
DX: F10.129 Alcohol abuse with intoxication, unspecified (principal); E11.9 Type 2 diabetes mellitus without complications; I10 Essential (primary) hypertension; F17.200 Nicotine dependence, unspecified, uncomplicated; Z79.899 Other long term (current) drug therapy
CPT/HCPCS: 99284

== ENCOUNTER 2017-05-28 00:33 | Emergency (ER) | payer OTHER ==
[2017-07-17] MEDS ORDERED: HYDRALAZINE HC100 MG PO (15:56)
[2017-07-17] MEDS ORDERED: LISINOPRIL20 MG PO (15:57)
[2017-07-17] MEDS ORDERED: ONE DAILY ENER1 EACH PO (16:00)
[2017-07-17] MEDS ORDERED: ANTI-DIARRHEAL2 M1 PO (16:01)
[2017-07-17] MEDS ORDERED: NICOTINE TRANSD14 MG TOP (16:02)
[2017-07-17] MEDS ORDERED: LIBRIUM PO (16:05)
[2017-07-17] MEDS ORDERED: ASPIRIN EC81 M1 PO (16:06)
[2017-07-17] MEDS ORDERED: ALDACTONE25 MG PO (16:16)
== END 2017-05-28 07:10 | disposition home or self-care (01) ==
LOC: CED 00:33
DX: F10.129 Alcohol abuse with intoxication, unspecified (principal); E11.9 Type 2 diabetes mellitus without complications; I10 Essential (primary) hypertension; Z79.899 Other long term (current) drug therapy
CPT/HCPCS: 99284

== ENCOUNTER 2017-05-28 13:10 | Emergency (ER) | payer OTHER ==
[~2017-05-28] VITALS: Ht 172.7 cm; Wt 97.5 kg
[2017-07-17] MEDS ORDERED: HYDRALAZINE HC100 MG PO (15:56)
[2017-07-17] MEDS ORDERED: LISINOPRIL20 MG PO (15:57)
[2017-07-17] MEDS ORDERED: ONE DAILY ENER1 EACH PO (16:00)
[2017-07-17] MEDS ORDERED: ANTI-DIARRHEAL2 M1 PO (16:01)
[2017-07-17] MEDS ORDERED: NICOTINE TRANSD14 MG TOP (16:02)
[2017-07-17] MEDS ORDERED: LIBRIUM PO (16:05)
[2017-07-17] MEDS ORDERED: ASPIRIN EC81 M1 PO (16:06)
[2017-07-17] MEDS ORDERED: ALDACTONE25 MG PO (16:16)
== END 2017-05-28 18:37 | disposition home or self-care (01) ==
LOC: CED 13:10
DX: F10.129 Alcohol abuse with intoxication, unspecified (principal); Y90.9 Presence of alcohol in blood, level not specified; F19.10 Other psychoactive substance abuse, uncomplicated; E11.9 Type 2 diabetes mellitus without complications; I10 Essential (primary) hypertension; F17.200 Nicotine dependence, unspecified, uncomplicated; Z79.899 Other long term (current) drug therapy
CPT/HCPCS: 99284

== ENCOUNTER 2017-06-03 00:25 | Emergency (ER) | payer OTHER ==
[~2017-06-03] VITALS: Ht 190.5 cm; Wt 104.3 kg
[2017-07-17] MEDS ORDERED: HYDRALAZINE HC100 MG PO (15:56)
[2017-07-17] MEDS ORDERED: LISINOPRIL20 MG PO (15:57)
[2017-07-17] MEDS ORDERED: ONE DAILY ENER1 EACH PO (16:00)
[2017-07-17] MEDS ORDERED: ANTI-DIARRHEAL2 M1 PO (16:01)
[2017-07-17] MEDS ORDERED: NICOTINE TRANSD14 MG TOP (16:02)
[2017-07-17] MEDS ORDERED: LIBRIUM PO (16:05)
[2017-07-17] MEDS ORDERED: ASPIRIN EC81 M1 PO (16:06)
[2017-07-17] MEDS ORDERED: ALDACTONE25 MG PO (16:16)
== END 2017-06-03 06:08 | disposition home or self-care (01) ==
LOC: CED 00:25
DX: F10.129 Alcohol abuse with intoxication, unspecified (principal); E11.9 Type 2 diabetes mellitus without complications; I10 Essential (primary) hypertension; I48.91 Unspecified atrial fibrillation; F17.210 Nicotine dependence, cigarettes, uncomplicated; Z79.899 Other long term (current) drug therapy
CPT/HCPCS: 99284